=== PATIENT | female | born 1975 | race Caucasian/White ===

== ENCOUNTER 2021-08-30 01:43 | Day surgery (SDC) | payer BC, SELFPAY ==
[2021-08-23 10:24] VITALS: BMI 23.6
[2021-08-30 09:53] VITALS: BP 112/77; PULSE 80; RESP 16; TEMP 36.4; O2SAT 99
[2021-08-30] MEDS: LACTATED RINGERS 1,000 ML 150 ML IV CONT (09:55)
--- NOTE | 2021-08-30 10:10 | WPDANESEPPF ---
Anes - Initial Pre Proc Eval Procedure: Operation Date: 08/30/21 11:00 Proposed Procedures p Screening Colonoscopy - Hua Lucia MD Date/Time: 08/30/21 10:10 Surgeon: Hua Lucia MD Pre Op Diagnosis: neoplasm screening Patient Data Age: 46 Gender: F Height: 1.7 m Weight: 66.7 kg Last Vital Signs Temp 36.4 C L 08/30/21 09:53 Pulse 80 08/30/21 09:53 Resp 16 08/30/21 09:53 BP 112/77 08/30/21 09:53 Pulse Ox 99 08/30/21 09:53 O2 Del Method Room Air 08/30/21 09:53 Allergies Allergy/AdvReac Type Severity Reaction Status Date / Time codeine Allergy Mild Itching Verified 08/30/21 09:51 hydrocodone Allergy Mild Itching Verified 08/30/21 09:51 morphine Allergy Mild Itching Verified 08/30/21 09:51 tramadol [From Ultram] Allergy Mild itching Verified 08/30/21 09:51 Home Medications Medication Instructions Recorded Confirmed Type amitriptyline 25 mg tablet 25 mg PO QHS 08/15/21 08/30/21 History escitalopram oxalate 20 mg tablet 20 mg PO HS 08/15/21 08/30/21 History (Lexapro) levothyroxine 100 mcg tablet 100 mcg PO HS 08/15/21 08/30/21 History (Synthroid) metoprolol succinate 50 mg 50 mg PO HS 08/15/21 08/30/21 History tablet,extended release 24 hr Pepcid 20 mg PO BID 08/23/21 08/30/21 History Patient hx anesthesia problems: none Family hx anesthesia problems: none Results Review: All pre-operative results and documents have been reviewed as part of the pre-operative evaluation. [facility] Past Medical History Medical History Aortic stenosis Depression GERD (gastroesophageal reflux disease) Hx of migraines Hypothyroid Mitral valve prolapse Surgical History Surgical History History of hip surgery R hip 2018 and L hip 2019- [facility] History of hysterectomy [address] [facility] History of TMJ disorder [facility] Hx of section [facility] Hx of endoscopy 2019 [facility] Hx of wisdom tooth extraction all four wisdom teeth 1990 Family History Family History Father High cholesterol Mother Hypertension Cerebrovascular accident Hypothyroid Uterine cancer Rectal abnormality, Onset Age: [address] imaging[address] GI consult pending. Social History Social History Social History: current caffeine use: patient usually has two cups of coffee per day and one soda a week Smoking status: Never smoker Alcohol intake: current Drinks per week: 1 Alcohol use details: social drinker- patient usually drinks liquor mixed drinks Substance use: never Substance use type: does not use Additional living arrangements comments: Patient is and states there are four people living in her home. She has four children: F-24, M-21, M-19, and M-14 Additional occupation/education comments: Nurse Gender identity (if verbalized by the patient): Female Sexual Orientation (if Verbalized by the Patient): Straight or Heterosexual Spiritual care concerns: No Anes - Eval Final PreProcedure Day of Procedure 08/30/21 10:10 Patient weight: normal Heart: regular rate and rhythm Lungs: clear to auscultation Airway: Mallampati scale class II Neurological: alert and oriented ASA classification: III Emergent: no Anesthetic plan: proceed Anesthesia type and monitoring: general GIVS and standard monitoring Results Review: All pre-operative results and documents have been reviewed as part of the pre-operative evaluation. Informed Consent: The patient's anesthetic plan and its attendant risks and benefits were discussed with the patient/family/POA. Questions were solicited and answers provided to the satisfaction of the patient/family/POA.
--- NOTE | 2021-08-30 10:56 | WPDHPUPDATE1 ---
History and Physical Update Update Date/Time: 08/30/21 10:56 History and Physical has been reviewed, including an updated exam of the patient. There are NO changes in the patient's condition. Risks, benefits, and alternatives have been discussed and questions answered. Patient agrees to proceed with procedure.
[2021-08-30 11:46] VITALS: BP 91/56; PULSE 61; RESP 13; O2SAT 100
[2021-08-30 11:56] VITALS: BP 108/63; PULSE 75; RESP 17; O2SAT 100
[2021-08-30 12:06] VITALS: BP 109/65; PULSE 63; RESP 17; O2SAT 99
== END 2021-08-30 12:18 | disposition home or self-care (01) ==
PROVIDERS: PCP Pediatrics; Visit Provider Surgery
PROC: 0DJD8ZZ Inspection of Lower Intestinal Tract, Via Natural or Artificial Opening Endoscopic (ICD-10-PCS; CPT 45378; principal; 2021-08-30 11:00)
DX: Z12.11 Encounter for screening for malignant neoplasm of colon (principal); K62.89 Other specified diseases of anus and rectum; K64.0 First degree hemorrhoids; R10.11 Right upper quadrant pain; K21.9 Gastro-esophageal reflux disease without esophagitis; E03.9 Hypothyroidism, unspecified; I34.1 Nonrheumatic mitral (valve) prolapse; K80.10 Calculus of gallbladder with chronic cholecystitis without obstruction; I35.0 Nonrheumatic aortic (valve) stenosis; F32.A Depression, unspecified; I70.0 Atherosclerosis of aorta
CPT/HCPCS: 45378; J2704; J7120

== ENCOUNTER 2021-08-30 09:35 | Outpatient (CLI) | payer BC, SELFPAY ==
[2021-08-30 10:10] LABS: Basophils Absolute Auto 0.1 K/mm3 (0.0-0.1); Basophils Percent Auto 0.8 % (0.2-1.2); Eosinophils Absolute Auto 0.1 K/mm3 (0-0.3); Eosinophils Percent Auto 1.2 % (0-4.4); Hematocrit 39.7 % (37.0-47.0); Hemoglobin 13.8 g/dL (12.0-15.0); Immature Granulocyte Absolute 0.01 K/mm3 (0.00-0.031); Immature Granulocyte Percent A 0.2 % (0-0.5); Lymphocytes Absolute Auto 1.31 K/mm3 (0.9-3.2); Mean Corpuscular HGB Conc 34.8 g/dl (32-36); Mean Corpuscular Hemoglobin 30.9 pg (26-34); Mean Platelet Volume 9.3 fl (7.4-10.4); Monocytes Absolute Auto 0.4 K/mm3 (0.1-0.6); Monocytes Percent Auto 5.8 % (2.6-8.5); Neutrophils Absolute Auto 4.7 K/mm3 (1.3-6.7); Platelet Count Result 256 k/mm3 (150-375); Red Blood Count 4.46 M/mm3 (4.2-5.4); Red Cell Distribution Width 12.3 % (11.5-14.5); White Blood Count 6.6 K/mm3 (4.5-10.0)
[2021-08-30 10:31] LABS: Alanine Aminotransferase 19 U/L (6-35); Albumin Level 4.6 g/dL (3.5-5.1); Alkaline Phosphatase 64 U/L (38-126); Amylase 64 U/L (30-110); Anion Gap 7 mmol/L (8-16); Aspartate Amino Transferase 30 U/L (14-36); Bilirubin,Total 0.7 mg/dL (0.2-1.3); Blood Urea Nitrogen 10 mg/dL (7-17); Carbon Dioxide 25 mmol/L (22-30); Chloride 107 mmol/L (98-107); Estimated Glomerular Filt Rate > 60; Glucose 100 mg/dL (65-110); Lipase 29 U/L (23-300); Potassium 3.8 mmol/L (3.4-5.0); Sodium 139 mmol/L (137-145)
== END 2021-08-30 09:36 | disposition home or self-care (01) ==
PROVIDERS: PCP Pediatrics; Visit Provider Surgery
DX: K80.10 Calculus of gallbladder with chronic cholecystitis without obstruction (principal)
CPT/HCPCS: 36415; 80053; 82150; 82248; 83690; 85025

== ENCOUNTER 2021-09-05 01:03 | Day surgery (SDC) | payer BC, SELFPAY ==
[2021-08-27 16:36] VITALS: BMI 23.5
--- NOTE | 2021-08-27 16:40 | PC.NURSE ---
Report to the Outpatient Waiting Room, entrance under the green pavilion located off [facility], at time _1000_ on date _[id number]_. OR Time: _1200_. - You and your visitor will be asked a series of questions to screen for COVID 19 for your protection. - Only one visitor is allowed at this time. - The patient visitor is requested to leave or wait in car when not with patient. - A mask is required within the hospital. Patients may have clear liquids (water, carbonated beverages, clear teas, apple juice) until 3 hours prior to surgery with a maximum of 20 ounces. - No food from midnight until time of surgery Take the following medications with a SIP of water the morning of surgery: ___None Medications to discontinue per physician None Date to take last dose Please no make-up, nail belarusian, hairspray, perfume, deodorant, or body powder the day of surgery. No jewelry (including any body piercings) or valuables the day of surgery, leave them at home. Please take a shower or bath the night before, or the morning of, surgery with an antibacterial soap. Wear comfortable, loose fitting clothing. - Jewelry must be removed prior to entering the operating room. Rings and piercings that are not removed may be cut off. - The hospital will not accept responsibility for valuables. - Please leave all valuables, including medications, at home the day of surgery. If you are going home after surgery, a licensed mechanic driver must drive you home. - NO public transportation without another adult. - We recommend that an adult stay with you for 24 hours following discharge. - We also recommend that you do not drive, make important decision, drink alcoholic beverages, or take any drugs that were not prescribed by your health care provider for at least 24 hours after your discharge time. Follow any additional instructions given to you from your surgeon. If you or anyone in your household have experienced Covid symptoms in the past week, please notify your surgeon or the nurse liaison at the phone number below for possible testing. Telephone instructions given to ___Patient____and asked if any additional questions and then verbalized understanding. Patient advised to call surgeon office or pre surgery nurse liaison [phone] if any additional questions.
[2021-09-05] VITALS (10 sets, daily range): BP systolic 102–125; BP diastolic 59–86; PULSE 70–83; RESP 11–16; TEMP 36.4; O2SAT 94–100
[2021-09-05] MEDS: LACTATED RINGERS 1,000 ML 30 ML IV CONT ×2 (10:38→14:44)
[2021-09-05] MEDS: ACETAMINOPHEN 500 MG TABLET 1000 MG PO (10:38)
[2021-09-05] MEDS: KETOROLAC 15 MG/ML VIAL (*BKC) IV PUSH (10:39)
--- NOTE | 2021-09-05 11:01 | WPDANESEPPF ---
Anes - Initial Pre Proc Eval Procedure: Operation Date: 09/05/21 12:00 Proposed Procedures p Laparoscopic Cholecystectomy, Possible Intra Operative Cholangiogram, Possible Open - Hua Lucia MD Date/Time: 09/05/21 11:01 Surgeon: Hua Lucia MD Pre Op Diagnosis: chronic cholecystitis with cholelithiasis Patient Data Age: 46 Gender: F Height: 1.7 m Weight: 68.3 kg Allergies Allergy/AdvReac Type Severity Reaction Status Date / Time codeine Allergy Mild Itching Verified 09/05/21 10:44 hydrocodone Allergy Mild Itching Verified 09/05/21 10:44 morphine Allergy Mild Itching Verified 09/05/21 10:44 tramadol [From Ultram] Allergy Mild itching Verified 09/05/21 10:44 Home Medications Medication Instructions Recorded Confirmed Type amitriptyline 25 mg tablet 25 mg PO QHS 08/15/21 09/05/21 History escitalopram oxalate 20 mg tablet 20 mg PO HS 08/15/21 09/05/21 History (Lexapro) levothyroxine 100 mcg tablet 100 mcg PO HS 08/15/21 09/05/21 History (Synthroid) metoprolol succinate 50 mg 50 mg PO HS 08/15/21 09/05/21 History tablet,extended release 24 hr Pepcid 20 mg PO BID 08/23/21 09/05/21 History Patient hx anesthesia problems: none Family hx anesthesia problems: none Results Review: All pre-operative results and documents have been reviewed as part of the pre-operative evaluation. [facility] Past Medical History Medical History Aortic stenosis Depression GERD (gastroesophageal reflux disease) Hx of migraines Hypothyroid Mitral valve prolapse Surgical History Surgical History History of hip surgery R hip 2018 and L hip 2019- [facility] History of hysterectomy 2013 [facility] History of TMJ disorder TMJ repair- 1996 [facility] Hx of section 1997 [facility] Hx of endoscopy 2019 [facility] Hx of wisdom tooth extraction all four wisdom teeth 1990 Family History Family History Father High cholesterol Mother Hypertension Cerebrovascular accident Hypothyroid Uterine cancer Rectal abnormality, Onset Age: [address] imaging[address] GI consult pending. Social History Social History Social History: current caffeine use: patient usually has two cups of coffee per day and one soda a week Smoking status: Never smoker Alcohol intake: current Drinks per week: 1 Alcohol use details: social drinker- patient usually drinks liquor mixed drinks Substance use: never Substance use type: does not use Living arrangements: with family Additional living arrangements comments: Patient is and states there are four people living in her home. She has four children: F-24, M-21, M-19, and M-14 Additional occupation/education comments: Nurse Gender identity (if verbalized by the patient): Female Sexual Orientation (if Verbalized by the Patient): Straight or Heterosexual Spiritual care concerns: No Anes - Eval Final PreProcedure Day of Procedure 09/05/21 11:01 Patient weight: normal Heart: regular rate and rhythm Lungs: clear to auscultation Airway: Mallampati scale class II and other (hx of TMJ surgery) Neurological: alert and oriented Last oral intake: >/= 8 hours ASA classification: II Emergent: no Anesthetic plan: proceed Anesthesia type and monitoring: general ETT and standard monitoring Results Review: All pre-operative results and documents have been reviewed as part of the pre-operative evaluation. Informed Consent: The patient's anesthetic plan and its attendant risks and benefits were discussed with the patient/family/POA. Questions were solicited and answers provided to the satisfaction of the patient/family/POA.
--- NOTE | 2021-09-05 12:08 | WPDHPUPDATE1 ---
History and Physical Update Update Date/Time: 09/05/21 12:08 History and Physical has been reviewed, including an updated exam of the patient. There are changes in the patient's condition. She had an unremarkable colonoscopy last week. And still has some reflux symptoms even though she took Pepcid BID this last week. Risks, benefits, and alternatives have been discussed and questions answered. Patient agrees to proceed with procedure.
[2021-09-05] MEDS: ceFAZolin 2 GM/D5W 50 ML 2 GM/50 ML BAG IVPB (12:15)
--- NOTE | 2021-09-05 14:42 | W.PM.PROC2 ---
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 Findings Hiatus specifically inspected no obvious large hiatal hernia. Very large long gallbladder with omental adhesions to the lower half indicating probably several previous episodes of inflammation but no active acute inflammation now. Description of Procedure Patient was seen preoperatively in the holding area and risks, benefits and alternatives confirmed. Patient was taken to the operating room and general anesthesia was induced. A time out was then preformed with the surgery team confirming patient and site of surgery. The abdomen was prepped and draped in the usual sterile fashion. Because of the pt's two previous entries via the umbilicus for laparoscopy, I started by using a Varess needle tecnique. In the LUQ approximately 5 cm below the left costal margin a site was selected and local anesthetic was infiltrated into the skin and subQ tissues. With the pts head slightly up two towel clips were used to put upward traction on the abd. wall. The varess needle was inserted into the soft tissues of the ara. walll and then the stop-cock opened on the needle. I felt the needle move through the abd. wall tissues and used the water drop test to confirm loss of resistance when entering the peritoneum. The CO2 gas was then connected to the needle and the abdomen was insufflated with carbon dioxide never exceeding a pressure of 14mmof Hg. Once insufflated a 5mm trocar and sleeve was placed over the 0 degree, 5mm laparoscope and then carefully twisted through the layers of the abd. wall under direct vision until the peritoneum was successfully entered. The trocar was removed, the gas connected to this port and then the scope used to confirm that there were no adhesions under the umbilicus. Since there were none I elected to again use the umbilicus as a port site. An incision was made just below and in the umbilicus in avertical fassion with an 11 blade knife and then also through the mid-line fascia beneath the umbilicus and was then able to slide in the Cannon cannula through this fascial defect into the peritoneum. The 20 c balloon on the port was inflated and the olive sealed down against the skin. We switched the CO2 gas line to this port and the laparoscope to a 0 degree 10 mm one. Then two more 5 mm trocars were then introduced under direct vision. The following trocars were introduced under direct vision: two 5 mm trocars along the right costal margin laterally in the subcostal area. There were significant omental adhesions to the underside of the gallbladder. These were taken down with blunt and sharp dissection using some Bovie cautery for hemostasis. We were able to dissect this completely away from the neck of the gallbladder but due to their vey dense and thick nature this took an extra 30 min to due compared to dissection without any of these adhesions. I then carefully used the L-shaped cautery and the [place] dissector to dissect out the triangle of [place]. I then was able to dissect out both the cystic duct and cystic artery and identify a window of safety. The gall bladder was grasped and the cystic duct and artery were dissected free and clipped with an 5 mm endo-clip solar panel installation supervisor. The cystic duct and artery were clipped with use of 2 clips on the patient's side 1 on the gallbladder side utilizing a 5 mm endoclip-solar panel installation supervisor. The cystic duct was then transected. The cystic artery was also transected at this point. The gall bladder was removed using electrocautery and then removed from the abdomen using an endobag . Prior to using the endobag I had not seen any hole in the gallbladder. Therefore, we tried use the large 10
--- NOTE | 2021-09-05 15:03 | SUR.PHASEI ---
1500 - spoke with and update given.
[2021-09-05] MEDS: fentaNYL CITRATE INJ (*CRX) 100 MCG/2 ML VIAL 25 MCG IV PUSH ×8 (15:09→15:59)
[2021-09-05] MEDS: ONDANSETRON INJ 4 MG/2 ML VIAL IV PUSH (15:57)
[2021-09-05] MEDS: diphenhydrAMINE HCl INJ 50 MG/ML VIAL 25 MG IV PUSH (16:34)
[2021-09-05] MEDS: oxyCODONE HCL (*CRX) 5 MG TAB IR PO (16:35)
== END 2021-09-05 17:47 | disposition home or self-care (01) ==
PROVIDERS: PCP Pediatrics; Visit Provider Surgery
PROC: 0FT44ZZ Resection of Gallbladder, Percutaneous Endoscopic Approach (ICD-10-PCS; CPT 47562; principal; 2021-09-05 12:00)
DX: K80.10 Calculus of gallbladder with chronic cholecystitis without obstruction (principal); I34.1 Nonrheumatic mitral (valve) prolapse; E03.9 Hypothyroidism, unspecified; I35.0 Nonrheumatic aortic (valve) stenosis; F32.A Depression, unspecified
CPT/HCPCS: 47562; 87070; 87075; 87205; 88304; A9270; J0690; J1100; J1200; J1885; J2405; J2704; J3010; J7030; J7120